=== PATIENT | female | born 1955 | race Caucasian/White ===

== ENCOUNTER → 2017-03-18 | Outpatient (CLI) | payer BC | LOC: MC.RAD 10:40 | DX: Z12.31 Encounter for screening mammogram for malignant neoplasm of breast (principal) ==

== ENCOUNTER → 2017-03-26 | Outpatient (CLI) | payer BC | LOC: COL.LAB 09:10 | DX: M79.604 Pain in right leg (principal) ==

== ENCOUNTER → 2019-06-01 | Outpatient (CLI) | payer BC | LOC: COL.RAD 09:15 | DX: M25.551 Pain in right hip (principal) | CPT/HCPCS: J3301; Q9967 ==

== ENCOUNTER → 2019-08-25 | Outpatient (CLI) | payer BC | LOC: MC.RAD 07:45 | DX: Z12.31 Encounter for screening mammogram for malignant neoplasm of breast (principal) ==

== ENCOUNTER → 2020-08-16 | Outpatient (CLI) | payer BC | LOC: COL.RAD 12:43 | DX: I77.810 Thoracic aortic ectasia (principal) | CPT/HCPCS: Q9967 ==

== ENCOUNTER → 2020-08-30 | Outpatient (CLI) | payer BC | LOC: MC.RAD 09:27 | DX: Z12.31 Encounter for screening mammogram for malignant neoplasm of breast (principal) ==

== ENCOUNTER 2022-11-09 21:45 | Emergency (ER) | payer BC ==
[~2022-11-09] VITALS: Ht 167.6 cm; Wt 90.9 kg
[2022-11-09 21:58] VITALS: BP 121/66; PULSE 58; TEMP 98.3
== END 2022-11-09 22:43 | disposition home or self-care (01) ==
LOC: COL.ER 21:45
DX: S81.811A Laceration without foreign body, right lower leg, initial encounter (principal); W25.XXXA Contact with sharp glass, initial encounter; Y92.009 Unspecified place in unspecified non-institutional (private) residence as the place of occurrence of the external cause

== ENCOUNTER 2023-12-20 09:56 | Day surgery (SDC) | payer MEDICARE, BC ==
[~2023-12-20] VITALS: Ht 170.2 cm; Wt 87.3 kg
[~2023-12-20 09:56] MED LIST: LR 1,000 ML IV SCH; Ondansetron 4 MG/2 ML VIAL IV PRN
[2023-12-20] MEDS ORDERED: CRESTOR20 MG PO (10:08)
[2023-12-20] MEDS ORDERED: TOPROL XL 25MG25 MG PO (10:08)
[2023-12-20] MEDS ORDERED: TAMBOCOR50 MG PO (10:08)
[2023-12-20] MEDS ORDERED: APRISO0.375 GM PO (10:09)
[2023-12-20] MEDS ORDERED: OZEMPIC1 MG/0.71 SQ (10:10)
[2023-12-20] MEDS ORDERED: PRILOSEC 20MG20 MG PO (10:11)
[2023-12-20 10:16] VITALS: BP 113/70; PULSE 61; TEMP 98.3
--- NOTE | 2023-12-20 10:42 | NUR ---
The patient ambulated back to [place] [facility] independenlty using a steady gait and appeared to tolerate the activity well. Vital signs obtained. Consent signed. 20G IV started in right hand with one stick, LR infusing without difficulty. Assessment completed. Home medicaitons reconcilled. Warm blanket provided. Denies any further needs.
[2023-12-20 11:30] VITALS: BP 98/55; PULSE 68; TEMP 98.2
--- NOTE | 2023-12-20 11:30 | NUR ---
PATIENT RETURNS TO [facility] IN AMBULATORY. SHE IS ALERT AND ORIENTED. VS WNL. PATIENT REQUESTS WATER AND CRACKERS. IS IN THE WAITING ROOM. CALL LIGHT WITHIN REACH. WILL CONTINUE TO MONITOR.
[2023-12-20 11:45] VITALS: BP 128/78; PULSE 63
--- NOTE | 2023-12-20 11:45 | NUR ---
PATIENT IS DOING WELL. VS WNL. SHE DENIES ANY PAIN OR NAUSEA AFTER EATING AND DRINKING. IV DISCONTINUED. WILL CONTINUE TO MONITOR.
[2023-12-20 12:00] VITALS: BP 116/54; PULSE 63
--- NOTE | 2023-12-20 12:00 | NUR ---
PATIENT IS READY FOR DISCHARGE. LAST SET OF VITALS WNL. DISCHARGE INSTRUCTIONS REVIEWED WITH PATIENT AND HER . WILL DISCHARGE ONCE SHE IS DRESSED.
== END 2023-12-20 12:08 | disposition home or self-care (01) ==
LOC: SDCO 09:56
DX: K51.00 Ulcerative (chronic) pancolitis without complications (principal); K21.9 Gastro-esophageal reflux disease without esophagitis; E66.01 Morbid (severe) obesity due to excess calories; Z68.32 Body mass index [BMI] 32.0-32.9, adult
CPT/HCPCS: J2704; J7120